=== PATIENT | male | born 1970 | race Two or more races ===

== ENCOUNTER 2025-02-28 20:11 | Emergency (ER) | payer OTHER ==
[~2025-02-28] VITALS: Ht 177.8 cm; Wt 80.5 kg
--- NOTE | 2025-02-28 21:52 | DVH ---
EXAM: XY R FOOT 3 VIEW XRAY HISTORY: 2nd toe pain COMPARISON: None TECHNIQUE: Three views of the right foot were performed. FINDINGS/IMPRESSION: No acute fracture or dislocation are identified about the right foot. No significant degenerative nika nges. If clinical symptoms persist, a repeat radiograph may be obtained in 10-14 days to better visua lize a fracture line.
--- NOTE | 2025-02-28 23:02 | ED.PDOC ---
Back pain HPI HPI Comments C/C: RIGHT FOOT, SECOND TOE PAIN FOR THE PAST 3 DAYS. DENIES INJURY, NUMBNESS OR WEAKNESS, FEVER, CHILLS, NAUSEA, VOMITING, CHEST PAIN OR DIFFICULTY BREATHING. REPORTS REDNESS WARMTH AND PURULENT DRAINAGE. ALL VSS. DENIES PMH. Chief Complaint: Lower Extremity Time Seen by MD: 20:14 Reviewed Notes: Nurses Notes, Medications, Allergies Allergies: Coded Allergies: NO KNOWN ALLERGIES (Unverified , 02/28/25) Home Meds Active Scripts Ibuprofen (Ibuprofen) 800 Mg Tab, 800 MG PO Q8HP PRN for 7 Days, #21 TAB Prov:AMY TRUJILLOK SHUTTLE DRIVER 02/28/25 Doxycycline Hyclate (DOXYCYCLINE HYCLATE) 100 Mg Tab, 1 TAB PO BID for 7 Days, #14 TAB Prov:SYLVESTER TRUJILLO SHUTTLE DRIVER 02/28/25 Information Source: Patient Mode of Arrival: Ambulatory Past Medical History PAST MEDICAL HISTORY: Denies Surgical History: Denies all surgeries Family History Family History: Reviewed,noncontributory to illness Social History Smoker: Non-Smoker Alcohol: Denies ETOH Use Drugs: Denies Drug Use All Other Systems: Reviewed and Negative Physical Exam General Appearance: No Apparent Distress, Normal HEENT: Pharynx Normal Neck: Full Range of Motion, Non-Tender Respiratory: Lungs Clear, No Respiratory Distress, Normal Breath Sounds Cardiovascular: No Edema, No JVD, No Murmur, No Gallop, Normal Peripheral Pulses, Regular Rate/Rhythm Breast Exam: Deferred Gastrointestinal: No Organomegaly, Non Tender, No Pulsatile Mass, Normal Bowel Sounds, Soft Genitalia: Deferred Pelvic: Deferred Rectal: Deferred Extremities: No calf tenderness, Normal capillary refill, Normal range of motion, Non-tender, No pedal edema Musculoskeletal : Apperance: Normal Neurologic: Alert, waiter waitress II-XII nml as Tested, No Motor Deficits, Normal Affect, Normal Mood, No Sensory Deficits Cerebellar Function: Normal Reflexes: Normal Skin: Dry, Normal Color, Warm, Wounds (RIGHT FOOT 2ND TOE NOTED OPEN WOUND WITH PURULENT DRAINAGE TRACE EDEMA NOTED ERYTHEMA WITHOUT STREAKING STRENGTH SENSORY MOTION INTACT CAP REFILL LESS THAN 3 SECONDS.) Lymphatic: No Adenopathy Was a procedure done? Was a procedure done?: No Back Pain Differential Dx Differential Diagnosis: Fracture, Musculoskeletal Pain X-Ray, Labs, Meds, VS Vital Signs Date Time Temp Pulse Resp B/P (MAP) Pulse Ox O2 Delivery O2 Flow Rate FiO2 02/28/25 23:12 98.0 58 18 127/81 (96) 100 98.0 02/28/25 23:12 58 18 100 Room Air 02/28/25 20:31 98.1 70 16 138/91 99 98.1 Current Medications Medications (Trade) Dose Ordered Sig/Rob Route Start Time Stop Time Status Last Admin Ceftriaxone Sodium (Rocephin) 1,000 mg ONCE ONCE IM 02/28/25 23:15 02/28/25 23:16 DC 02/28/25 23:12 Acetaminophen/ Hydrocodone Bitart ([place] 5/325MG Tab) 1 tab ONCE ONCE PO 02/28/25 23:15 02/28/25 23:16 DC 02/28/25 23:12 X-Ray, Labs, Meds, VS Comment FOOT X-RAY SHOWS NO ACUTE FRACTURES, DISLOCATIONS OR OSSEOUS LESIONS. Script trial of antibiotics and NSAID. Advised to take medication as prescribed side effects discussed. Advised to follow up with his PCP in two days, urgent care, or back in the ER for wound re-evaluation. Advised to keep dressing on, and clean change twice daily. Patient was also advised to return to the ER for increasing pain, numbness, weakness, swelling, fever or chills. Patient indicates understanding and agrees with discharge plan of care. Images Reviewed?: Images reviewed and evaluated by me Time of 1ST Reevaluation: 22:30 Reevaluation 1ST: Unchanged Time of 2ND Reevaluation: 22:58 Reevaluation 2ND: Improved Patient Education/Counseling: Diagnosis, Treatment, Need For Follow Up Family Education/Counseling: No Family Present SEPSIS Sepsis Screen Date sepsis recognized/suspect: Feb 28, 2025 Time Sepsis recognized/suspect: 2033 Recent Procedure: No On Antibiotic Therapy: No Respiratory Rate >20: No Heart Rate >90: No Temp<36 C (96.8 F) or >38.3 C: No SBP <90 or MAP <65 mmHG: No New Acute Mental Status Change: No Is the patient on CPAP, BIPAP,: No Physician Orders R Foot 3 View Xray (02/28/25 20:49) Vital Signs Date Time Temp Pulse Resp B/P (MAP) Pulse Ox O2 Delivery O2 Flow Rate FiO2 02/28/25 23:12 98.0 58 18 127/81 (96) 100 98.0 02/28/25 23:12 58 18 100 Room Air 02/28/25 20:31 98.1 70 16 138/91 99 98.1 Medications Medications Dose Ordered Sig/Rob Route Start Time Stop Time Status Last Admin Dose Admin Acetaminophen/ Hydrocodone Bitart 1 tab ONCE ONCE PO 02/28/25 23:15 02/28/25 23:16 DC 02/28/25 23:12 Ceftriaxone Sodium 1,000 mg ONCE ONCE IM 02/28/25 23:15 02/28/25 23:16 DC 02/28/25 23:12 Departure 1 Departure Time of Disposition: 23:06 Impression: Primary Impression: Toe abrasion, infected Qualified Codes: S90.414A - Abrasion, right lesser toe(s), initial encounter; L08.9 - Local infection of the skin and subcutaneous tissue, unspecified Disposition: 01 HOME / SELF CARE / HOMELESS Condition: Stable e-Prescriptions Ibuprofen (Ibuprofen) 800 Mg Tab 800 MG PO Q8HP PRN for 7 Days, #21 TAB Prov: SYLVESTER TRUJILLO 02/28/25 Doxycycline Hyclate (DOXYCYCLINE HYCLATE) 100 Mg Tab 1 TAB PO BID for 7 Days, #14 TAB Prov: SYLVESTER TRUJILLO 02/28/25 Discharged With: Self Critical Care Note Critical Care Time?: No Stability Stability form required: SYLVESTER Dowling Feb 28, 2025 23:02
[2025-02-28] MEDS ORDERED: DOXY-286 PO (23:07)
[2025-02-28] MEDS ORDERED: IBUP-1456 PO (23:07)
[2025-02-28 23:12] VITALS: BP 127/81; PULSE 58; RESP 18; TEMP 98; O2SAT 100
[2025-02-28] MEDS: cefTRIAXone SOD 1,000 MG VL IM ONE (23:12)
[2025-02-28] MEDS: HYDROcodone-ACET 5/325MG TAB PO ONE (23:12)
== END 2025-02-28 23:23 | disposition home or self-care (01) ==
LOC: ER 20:11
DX: S90.414A Abrasion, right lesser toe(s), initial encounter (principal); L08.9 Local infection of the skin and subcutaneous tissue, unspecified; Z79.899 Other long term (current) drug therapy; X58.XXXA Exposure to other specified factors, initial encounter; Y93.89 Activity, other specified; Y92.89 Other specified places as the place of occurrence of the external cause; Y99.8 Other external cause status
CPT/HCPCS: 73630; 96372; 99283; J0696